=== PATIENT | male | born 1990 | race Hispanic/Latino ===

== ENCOUNTER 2022-12-14 08:06 | Outpatient (CLI) | payer BC ==
[2022-12-14] MEDS ORDERED: Iopamidol-370 76% 500 ML 1 ML ONE (13:40)
== END 2022-12-14 08:07 | disposition home or self-care (01) ==
LOC: BICCT 08:06
PROVIDERS: ATTEND Registered Nurse
DX: R19.06 Epigastric swelling, mass or lump (principal)
CPT/HCPCS: 74177; Q9967